=== PATIENT | male | born 1950 | race Caucasian/White ===

== ENCOUNTER 2020-01-18 11:19 | Inpatient (IN) | payer OTHER ==
[~2020-01-18] VITALS: Ht 185.4 cm; Wt 58.2 kg
[2020-01-18 11:29] VITALS: BP 109/73
[2020-01-18] MEDS ORDERED: ELIQUIS5 MG PO (11:44)
[2020-01-18] MEDS ORDERED: PROAIR HFA8.5 GM INH (11:44)
[2020-01-18] MEDS ORDERED: ACITRETIN25 MG PO (11:44)
[2020-01-18] MEDS ORDERED: RAYOS5 MG PO (11:45)
[2020-01-18] MEDS ORDERED: SPIRIVA18 MCG INH (11:45)
[2020-01-18] MEDS ORDERED: SYMBICORT160 MCG/4. INH (11:45)
[2020-01-18 11:54] LABS: BE 2.2 mmol/L (-2 to +3); PCO2 43.5 mmHg (35.0-45.0); pH 7.414 (7.340-7.450)
[2020-01-18 11:56] LABS: HEMATOCRIT 45.8 % (42.0-52.0); HEMOGLOBIN 15.5 gm/dL (14.0-18.0); MCH 31.1 pg (26.0-34.0); MCHC 33.9 g/dL (28.0-37.0); MCV 91.9 fL (80.0-100.0); NUCLEATED RBCS 0 /100WBC; PLATELET COUNT* 173 thou/uL (150-400); RBC 4.98 mil/uL (4.50-6.00); RDW-CV 13.6 % (10.5-14.5); WBC 9.9 thou/uL (4.0-11.0)
[2020-01-18 11:57] LABS: INFLUENZA A ANTIGEN Negative (Negative); INFLUENZA B ANTIGEN Negative (Negative)
[2020-01-18 12:04] LABS: APTT 33.5 Seconds (25.0-31.3); CALCIUM 8.3 mg/dL (8.5-10.1); CREATININE 1.1 mg/dL (0.6-1.3); POTASSIUM 3.9 mmol/L (3.5-5.1); PROTIME 10.6 Seconds (9.20-11.50)
[2020-01-18 12:14] LABS: ALBUMIN 3.4 g/dL (3.4-5.0); MAGNESIUM 1.7 mg/dL (1.8-2.4); TOTAL BILIRUBIN 0.4 mg/dL (<0.1-1.0); TOTAL PROTEIN 7.6 g/dL (6.4-8.2)
[2020-01-18 12:57] LABS: ABSOLUTE LYMPHOCYTES 0.6 thou/uL (0.8-5.3); ABSOLUTE MONOCYTES 0.6 thou/uL (0.0-1.2); ABSOLUTE NEUTROPHILS 8.7 thou/uL (1.6-8.1); PLATELET ESTIMATE ADEQUATE
--- NOTE | 2020-01-18 15:53 | EKG ---
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: STACI : 1950 Requested By: Edwin Davies Order Number: [id number] MD: Hemant Velazquez Measurements Intervals Beason Rate: 115 P: 86 NH: 131 QRS: 111 QRSD: 97 T: 65 QT: 372 QTc: 515 Interpretive Statements Sinus tachycardia Ventricular premature complex Right atrial enlargement artifact noted Nonspecific T abnormalities, lateral leads Prolonged QT interval No previous ECG available for comparison Electronically Signed On 01-18-2020 15:51:39 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
[2020-01-18 17:13] VITALS: BP 90/55
[2020-01-18] MEDS ORDERED: ALBUTEROL SULFAT4 M1 PO (20:59)
[2020-01-18 21:10] VITALS: BP 112/65
[2020-01-18] MEDS ORDERED: TRAZODONE HCL50 MG PO (21:10)
[2020-01-18 21:15] VITALS: BP 120/69
[2020-01-19 04:00] VITALS: BP 103/59
[2020-01-19 04:01] LABS: HEMATOCRIT 41.6 % (42.0-52.0); HEMOGLOBIN 13.9 gm/dL (14.0-18.0); MCH 30.8 pg (26.0-34.0); MCHC 33.3 g/dL (28.0-37.0); MCV 92.3 fL (80.0-100.0); MPV 8.7 fl. (7.2-11.1); RBC 4.51 mil/uL (4.50-6.00); RDW-CV 13.6 % (10.5-14.5); WBC 6.6 thou/uL (4.0-11.0)
[2020-01-19 04:08] LABS: CALCIUM 7.8 mg/dL (8.5-10.1); CREATININE 0.8 mg/dL (0.6-1.3); MAGNESIUM 1.8 mg/dL (1.8-2.4); POTASSIUM 3.9 mmol/L (3.5-5.1)
[2020-01-19 09:11] VITALS: BP 121/58
[2020-01-19 11:36] VITALS: BP 96/53
[2020-01-19 16:13] VITALS: BP 96/56
[2020-01-19 20:00] VITALS: BP 114/62
[2020-01-20] VITALS: BP 117/58
[2020-01-20 04:01] VITALS: BP 98/56
[2020-01-20 08:00] VITALS: BP 125/71
[2020-01-20] MEDS ORDERED: PREDNISONE 20 M20 MG PO (11:09)
[2020-01-20] MEDS ORDERED: CEFDINIR300 MG PO (11:09)
[2020-01-20] MEDS ORDERED: AZITHROMYCIN 2250 MG PO (11:09)
[2020-01-20 11:51] VITALS: BP 117/64
[2020-01-20 15:45] VITALS: BP 117/64
== END 2020-01-20 17:30 | disposition home or self-care (01) | DRG 871 ==
LOC: M.ERS 11:19 → M.TBA-ER 12:40 → M.2W 12:40
PROVIDERS: Family Medicine; ADMIT Internal Medicine
PROC: 5A09357 Assistance with Respiratory Ventilation, Less than 24 Consecutive Hours, Continuous Positive Airway Pressure (ICD-10-PCS; principal; 2020-01-18)
DX: A41.89 Other specified sepsis (principal); J96.01 Acute respiratory failure with hypoxia; J96.02 Acute respiratory failure with hypercapnia; J15.9 Unspecified bacterial pneumonia; J44.0 Chronic obstructive pulmonary disease with (acute) lower respiratory infection; D68.59 Other primary thrombophilia; J44.1 Chronic obstructive pulmonary disease with (acute) exacerbation; L40.9 Psoriasis, unspecified; F17.210 Nicotine dependence, cigarettes, uncomplicated; R65.20 Severe sepsis without septic shock; E83.42 Hypomagnesemia; E86.9 Volume depletion, unspecified; Z79.01 Long term (current) use of anticoagulants; Z79.899 Other long term (current) drug therapy; Z86.718 Personal history of other venous thrombosis and embolism; Z28.89 Immunization not carried out for other reason